=== PATIENT | male | born 1990 | race Caucasian/White ===

== ENCOUNTER 2020-07-19 04:43 | Observation (INO) ==
[2020-07-19 04:58] VITALS: BMI 36.6
[2020-07-19] MEDS ORDERED: STERILE WATER IRRIGATION IR ONE ×2 (05:00→05:01)
[2020-07-19] MEDS ORDERED: BETADINE SOLN ONE (05:00)
[2020-07-19] MEDS ORDERED: BETADINE SOLN TOP ONE (05:01)
[2020-07-19] MEDS ORDERED: XYLOCAINE 1% and EPINEPHRINE 1:100,000 ONE (05:01)
[2020-07-19] MEDS ORDERED: XYLOCAINE 1% and EPINEPHRINE 1:100,000 IJ ONE (05:02)
[2020-07-19] MEDS ORDERED: ADACEL or BOOSTRIX TDaP VACCINE IM ONE ×2 (05:02→05:05)
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
[2020-07-19] MEDS ORDERED: TORADOL TAB PO ONE ×2 (05:34→05:46)
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
[2020-07-19 06:11] VITALS: BP 113/55
[2020-07-19] MEDS ORDERED: ZOFRAN INJ 4 MG VIAL IVP PRN (07:18)
[2020-07-19] MEDS ORDERED: TORADOL TAB PO PRN (07:18)
[2020-07-19 07:41] LABS: BASOPHILS % (AUTO) 0.3 % (0.2-1.0); EOSINOPHILS % (AUTO) 0.3 % (0.9-2.9); HEMOGLOBIN 14.5 g/dL (13.5-18.0); LYMPHOCYTES # (AUTO) 0.9 X10^3/uL (1.3-2.9); LYMPHOCYTES % (AUTO) 13.2 % (21.0-51.0); MEAN CORPUSCULAR HEMOGLOBIN 30.5 pg (27.0-34.0); MEAN CORPUSCULAR HGB CONC 34.6 g/dL (33.0-35.0); MEAN CORPUSCULAR VOLUME 87.9 fL (80.0-100.0); MEAN PLATELET VOLUME 8.1 fL (7.4-11.0); MONOCYTES # (AUTO) 0.3 x10^3/uL (0.3-0.8); MONOCYTES % (AUTO) 4.7 % (0.0-13.0); NEUTROPHILS # (AUTO) 5.7 x10^3/uL (2.2-4.8); NEUTROPHILS % (AUTO) 81.5 % (42.0-75.0); PLATELET COUNT 220 X10^3/uL (150.0-450.0); RED BLOOD COUNT 4.77 X10^6/uL (4.7-6.0); RED CELL DISTRIBUTION WIDTH 12.7 % (11.6-16.5)
[2020-07-19] MEDS ORDERED: NS 1000 ML 1,000 ML IV SCH (08:00)
[2020-07-19 08:03] LABS: ALANINE AMINOTRANSFERASE 24 Units/L (12-78); ALBUMIN 3.7 g/dL (3.4-5.0); ALKALINE PHOSPHATASE 46 Units/L (46-116); ASPARTATE AMINO TRANSFERASE 21 Units/L (15-37); BLOOD UREA NITROGEN 6 mg/dL (7-18); CALCIUM 8.3 mg/dL (8.5-10.1); CARBON DIOXIDE 23.2 mmol/L (21-32); CHLORIDE 105 mmol/L (98-107); CREATININE 0.84 mg/dL (0.70-1.30); SODIUM 142 mmol/L (136-145); TOTAL PROTEIN 6.9 g/dL (6.4-8.2); eGFR NON BLACK RACES > 60 (>60)
== END 2020-07-19 10:38 | disposition home or self-care (01) ==
LOC: MED/SURG 04:45 → ER 04:45 → MED/SURG 08:12
PROVIDERS: ADMIT Internal Medicine; ATTEND Internal Medicine
DX: Y92.9 Unspecified place or not applicable; S02.2XXA Fracture of nasal bones, initial encounter for closed fracture; S06.0X9A Concussion with loss of consciousness of unspecified duration, initial encounter; S01.21XA Laceration without foreign body of nose, initial encounter; W22.11XA Striking against or struck by driver side automobile airbag, initial encounter; V89.2XXA Person injured in unspecified motor-vehicle accident, traffic, initial encounter